=== PATIENT | female | born 1970 | race Asian ===

== ENCOUNTER 2016-09-15 16:56 | Inpatient (IN) | payer BC, OTHER ==
[2016-09-15] VITALS (7 sets, daily range): BP systolic 97–116; BP diastolic 58–70
[2016-09-15] MEDS ORDERED: IV NORMAL SALINE 1000ML BAG 1,000 ML IV ONE (17:45)
[2016-09-15 17:49] LABS: BILIRUBIN,URINE NEGATIVE (NEG); GLUCOSE,URINE NEGATIVE (NEG); NITRITE,URINE NEGATIVE (NEG); PH,URINE 5.5; PROTEIN,URINE NEGATIVE (NEG-TRACE); UROBILINOGEN,URINE 0.2 mg/dL (0.2 mg/dL)
[2016-09-15 17:51] LABS: NEG OBC UR NEG; POS OBC UR POS
[2016-09-15 17:56] LABS: BACTERIA,URINE 0 /HPF (0-FEW); RBC,URINE 0 /HPF (0-2); SQUAMOUS EPITHELIAL CELL,UR MOD /LPF; WBC,URINE 0 /HPF (0-4)
[2016-09-15 18:00] LABS: BASO # 0.1 x10^3/uL (0.0-0.2); BASO % 1 % (0-3); EOS % 4 % (0-3); LYMPH # 2.2 x10^3/uL (1.0-4.8); LYMPH % 29 % (24-48); MEAN CORPUSCULAR HEMOGLOBIN 19 pg (25-35); MEAN CORPUSCULAR HGB CONC 30 g/dL (31-37); MEAN CORPUSCULAR VOLUME 63 fL (79-100); MONO % 6 % (0-9); NEUT % 60 % (31-73); PLATELET COUNT 177 x10^3/uL (140-400); RED BLOOD COUNT 3.04 x10^6/uL (3.50-5.40); RED CELL DISTRIBUTION WIDTH 17.9 % (11.5-14.5); WHITE BLOOD COUNT 7.5 x10^3/uL (4.0-11.0)
[2016-09-15 18:01] LABS: HEMATOCRIT 19.2 % (36.0-47.0); HEMOGLOBIN 5.7 g/dL (12.0-15.5)
[2016-09-15 18:10] LABS: CALCIUM 8.6 mg/dL (8.5-10.1); CREATININE 0.6 mg/dL (0.6-1.0); GFR 108.6; POTASSIUM 3.3 mmol/L (3.5-5.1)
[2016-09-15 18:32] LABS: ANISOCYTOSIS SLIGHT; HYPOCHROMIA MOD; PLT ESTIMATE ADEQUATE (ADEQUATE); POLYCHROMASIA SLIGHT
[2016-09-15 18:33] LABS: MICROCYTOSIS MARKED
--- NOTE | 2016-09-15 18:38 | ED.ADGEN ---
Past Medical History Past Medical History: Asthma, Diabetes-Type II Past Surgical History: No Surgical History Additional Past Surgical Histo: d&c Alcohol Use: None Drug Use: None Adult General Chief Complaint Chief Complaint: VAGINAL PROBLEM HPI HPI Patient is a 46 year old woman, with a history of type 2 diabetes mellitus, asthma, who presents to the emergency department with a complaint of vaginal bleeding for 9 days. Patient states she is experiencing mild abdominal cramping , and vaginal bleeding that has been heavy and persistent for 9 days, states she is using an average of 7 pads that she is soaking through daily. States that the bleeding was especially heavy earlier this afternoon, prompting her to come to the emergency department for evaluation. Patient is primarily Kristy speaking, translation is assisted with family at bedside. Patient does not currently her primary care provider, and has not been using any medications for the past year and a half or so. She denies any chest pain or shortness of breath , any lightheadedness or dizziness, any nausea or vomiting, any weakness, numbness or tingling, any injuries. Denies any possibility of or STI exposures. Patient states she is not having any bleeding at this time. States that a similar episode occurred about 2 years ago, at that time she was evaluated at , received medication for the vaginal bleeding, did not require blood transfusion. No urinary complaints. No back pain or flank pain. Review of Systems Review of Systems Constitutional: Denies fever or chills. [] Eyes: Denies change in visual acuity. [] HENT: Denies nasal congestion or sore throat. [] Respiratory: Denies cough or shortness of breath. [] Cardiovascular: Denies chest pain or edema. [] GI: Abdominal cramping, vaginal bleeding, no nausea, vomiting, bloody stools or diarrhea. : Denies dysuria. [] Musculoskeletal: Denies back pain or joint pain. [] Integument: Denies rash. [] Neurologic: Denies headache, focal weakness or sensory changes. [] Endocrine: Denies polyuria or polydipsia. [] Lymphatic: Denies swollen glands. [] Psychiatric: Denies depression or anxiety. [] Current Medications Current Medications Current Medications Medications (Trade) Dose Ordered Sig/Jose Start Time Stop Time Status Last Admin Dose Admin Fentanyl Citrate (Fentanyl 2ml Vial) 25 mcg PRN Q15MIN PRN 09/15/16 19:30 09/16/16 19:29 Sodium Chloride 1,000 ml @ 1,000 mls/hr 1X ONCE 09/15/16 17:45 09/15/16 18:44 DC 09/15/16 18:20 1,000 MLS/HR Allergies Allergies Allergies Coded Allergies Type Severity Reaction Last Updated Verified No Known Drug Allergies 05/26/15 No Physical Exam Physical Exam Constitutional: Well developed, well nourished, no acute distress, pale in appearance. [] HENT: Normocephalic, atraumatic, bilateral external ears normal, oropharynx moist, no oral exudates, nose normal. [] Eyes: PERRLA, EOMI, conjunctiva pale, no discharge. [] Neck: Normal range of motion, no tenderness, supple, no stridor. [] Cardiovascular:Heart rate regular rhythm, no murmur, S1, S2, no rubs or gallops. [] Lungs & Thorax: Bilateral breath sounds clear to auscultation, no wheezing, rhonchi, rales. No chest or crepitus or tenderness. [] Abdomen: Bowel sounds normal, soft, mild tenderness to palpation in the suprapubic region, no masses, no pulsatile masses. [] Skin: Warm, dry, no erythema, no rash. [] Back: No tenderness, no CVA tenderness. [] Extremities: No tenderness, no cyanosis, no clubbing, ROM intact, no edema. [] Neurologic: Alert and oriented X 3, normal motor function, normal sensory function, no focal deficits noted. [] Psychologic: Affect normal, judgement normal, mood normal. [] Pelvic examination: External examination is unremarkable, straight catheter urine obtained without issue, urine was clear. External os open, fingertip internal os was open fingertip as well, nontender cervix and uterus, no adnexal masses or tenderness identified. Patient with a small amount of dark red blood on glove, speculum examination performed without issue, normal-appearing cervix , with a small amount of dark red blood in full, no active bleeding or oozing. No bright red blood, no lesions or other maladies identified. Specimens taken without issue. Current Patient Data Vital Signs Vital Signs Date Time Temp Pulse Resp B/P (MAP) Pulse Ox O2 Delivery O2 Flow Rate FiO2 09/15/16 19:20 98.5 75 21 116/59 98.5 09/15/16 18:04 100 Room Air Lab Values Laboratory Tests Test 09/15/16 17:05 09/15/16 17:40 White Blood Count 7.5 x10^3/uL (4.0-11.0) Red Blood Count 3.04 x10^6/uL (3.50-5.40) L Hemoglobin 5.7 g/dL (12.0-15.5) *L Hematocrit 19.2 % (36.0-47.0) *L Mean Corpuscular Volume 63 fL (79-100) L Mean Corpuscular Hemoglobin 19 pg (25-35) L Mean Corpuscular Hemoglobin Concent 30 g/dL (31-37) L Red Cell Distribution Width 17.9 % (11.5-14.5) H Platelet Count 177 x10^3/uL (140-400) Neutrophils (%) (Auto) 60 % (31-73) Lymphocytes (%) (Auto) 29 % (24-48) Monocytes (%) (Auto) 6 % (0-9) Eosinophils (%) (Auto) 4 % (0-3) H Basophils (%) (Auto) 1 % (0-3) Neutrophils # (Auto) 4.5 x10^3uL (1.8-7.7) Lymphocytes # (Auto) 2.2 x10^3/uL (1.0-4.8) Monocytes # (Auto) 0.4 x10^3/uL (0.0-1.1) Eosinophils # (Auto) 0.3 x10^3/uL (0.0-0.7) Basophils # (Auto) 0.1 x10^3/uL (0.0-0.2) Platelet Estimate Adequate (ADEQUATE) Polychromasia Slight Hypochromasia Mod Anisocytosis Slight Microcytosis Marked Prothrombin Time 13.4 SEC (11.7-14.0) Prothrombin Time INR 1.1 (0.8-1.1) PTT 30 SEC (24-38) Sodium Level 138 mmol/L (136-145) Potassium Level 3.3 mmol/L (3.5-5.1) L Chloride Level 103 mmol/L (98-107) Carbon Dioxide Level 27 mmol/L (21-32) Anion Gap 8 (6-14) Blood Urea Nitrogen 7 mg/dL (7-20) Creatinine 0.6 mg/dL (0.6-1.0) Estimated GFR (Cockcroft-Gault) 108.6 Glucose Level 132 mg/dL (70-99) H Calcium Level 8.6 mg/dL (8.5-10.1) Troponin I Quantitative < 0.017 ng/mL (0.000-0.055) Thyroid Stimulating Hormone (TSH) 2.839 uIU/mL (0.358-3.74) Urine Collection Type U cath Urine Color Straw Urine Clarity Clear Urine pH 5.5 Urine Specific [place] <=1.005 Urine Protein Negative mg/dL (NEG-TRACE) Urine Glucose (UA) Negative mg/dL (NEG) Urine Ketones (Stick) Negative mg/dL (NEG) Urine Blood Negative (NEG) Urine Nitrite Negative (NEG) Urine Bilirubin Negative (NEG) Urine Urobilinogen Dipstick 0.2 mg/dL (0.2 mg/dL) Urine Leukocyte Esterase Negative (NEG) Urine RBC 0 /HPF (0-2) Urine WBC 0 /HPF (0-4) Urine Squamous Epithelial Cells Mod /LPF Urine Transitional Epithelial Cells Occ /LPF Urine Bacteria 0 /HPF (0-FEW) Urine Test Negative (NEG) Laboratory Tests 09/15/16 17:05 Laboratory Tests 09/15/16 17:05 Microbiology 09/15/16 Wet Prep - Final, Complete EKG EKG EC: Sinus rhythm, heart rate 73 beats minute, left axis deviation, QTC of 464, [place] 154, QR is a 78, no ST elevations or depressions, no evidence of acute ST abnormalities. As interpreted by me. Radiology/Procedures Radiology/Procedures [][facility] [address] [place] [address] IMAGING REPORT Signed PATIENT: CADY RODRÍGUEZ ACCOUNT: [id number] : 1970 LOCATION: ER AGE: 46 SEX: F EXAM STATUS: REG ER ORD. PHYSICIAN: TOMAS ZEPEDA DO REASON: vaginal bleeding/abd pain PROCEDURE: PELVIS COMPLETE PROCEDURE Transabdominal and transvaginal sonography of the pelvis HISTORY Heavy vaginal bleeding. Patient has been on menstrual period for 9 days. Abdominal pain. FINDINGS Transabdominal sonography: The uterus is anteverted in position. The longitudinal and AP and transverse dimensions of the uterus are 9.9 centimeters and 3.8 centimeters and 6.5 centimeters respectively. The endometrial canal measures 6.5 millimeters in thickness but is poorly visualized. Therefore, transvaginal sonography will be performed. No uterine mass or fibroid is seen. No free fluid is seen within the cul-de-sac. Neither ovary is visualized by transabdominal exam. No adnexal masses are seen. Transvaginal sonography: A nabothian cyst is seen. The endometrial canal measures 6 millimeters in thickness which is normal. No uterine mass or fibroid is seen. The left ovary measures 1.7 centimeters and 1.8 centimeters and 3.6 centimeters in size. The left ovary contains a 16 millimeter follicular cyst. Additional smaller follicular cysts are seen. Color Doppler flow is seen within the left ovary. The right ovary measures 1.3 centimeters and 2.0 centimeters and 1.3 centimeters in size and is normal. Color Doppler flow is seen within the right ovary. No adnexal mass is seen. IMPRESSION Follicular cyst. Unremarkable study. Electronically signed by: Radha Tapia MD (September 15, 2016 19:33:21) DICTATED and SIGNED BY: RADHA TAPIA MD DATE: 09/15/161932 CC: TOMAS ZEPEDA DO; UNKNOWN PCP NAME ~ Course & Med Decision Making Course & Med Decision Making Pertinent Labs and Imaging studies reviewed. (See chart for details) Patient with complaint of bleeding 9 days, hemoglobin resulted at 5.7, patient denies any history of anemia. Consent for transfusion obtained, written consent on chart. Patient typed and crossed for 3 units of packed red cells. As stated, patient is expressing no vaginal bleeding currently, ultrasound reveals essentially normal examination aside from the a follicular cyst, symptoms are consistent with dysfunctional uterine bleeding. Findings as above discussed with Dr. Gaffney of [facility], patient accepted to his service as a full admission to the [facility] floor, TSH and prolactin level added to laboratory studies, patient to receive repeat hemoglobin and basic chemistry in the morning. Patient remained stable on the monitor, heart rate in the 70s to 80s, blood pressure and 1 teens over 70s, resting comfortably awaiting transfer to the floor. Bridge orders entered per discussion. Dragon Disclaimer Dragon Disclaimer This electronic medical record was generated, in whole or in part, using a voice recognition dictation system. Departure Impression: Primary Impression: Vaginal bleeding Additional Impression: Anemia Disposition: 09 ADMITTED INPATIENT Admitting Physician: Other Condition: IMPROVED Problem Qualifiers TOMAS ZEPEDA DO September 15, 2016 18:38
[2016-09-15 19:23] LABS: INR 1.1 (0.8-1.1); PROTHROMBIN TIME PATIENT 13.4 SEC (11.7-14.0)
[2016-09-15] MEDS ORDERED: fentaNYL PF VIAL 100 MCG/2 ML VIAL IV PRN ×2 (19:30→20:45)
--- NOTE | 2016-09-15 19:35 | RAD ---
PROCEDURE Transabdominal and transvaginal sonography of the pelvis HISTORY Heavy vaginal bleeding. Patient has been on menstrual period for 9 days. Abdominal pain. FINDINGS Transabdominal sonography: The uterus is anteverted in position. The longitudinal and AP and transverse dimensions of the uterus are 9.9 centimeters and 3.8 centimeters and 6.5 centimeters respectively. The endometrial canal measures 6.5 millimeters in thickness but is poorly visualized. Therefore, transvaginal sonography will be performed. No uterine mass or fibroid is seen. No free fluid is seen within the cul-de-sac. Neither ovary is visualized by transabdominal exam. No adnexal masses are seen. Transvaginal sonography: A nabothian cyst is seen. The endometrial canal measures 6 millimeters in thickness which is normal. No uterine mass or fibroid is seen. The left ovary measures 1.7 centimeters and 1.8 centimeters and 3.6 centimeters in size. The left ovary contains a 16 millimeter follicular cyst. Additional smaller follicular cysts are seen. Color Doppler flow is seen within the left ovary. The right ovary measures 1.3 centimeters and 2.0 centimeters and 1.3 centimeters in size and is normal. Color Doppler flow is seen within the right ovary. No adnexal mass is seen. IMPRESSION Follicular cyst. Unremarkable study. Electronically signed by: Dariel Tapia MD (September 15, 2016 19:33:21)
[2016-09-15] MEDS ORDERED: ONDANSETRON PF 4 MG/2 ML VIAL. IV PRN (20:45)
[2016-09-15] MEDS ORDERED: ACETAMINOPHEN 325 MG TABLET. PO PRN (20:45)
[2016-09-15] MEDS ORDERED: DEXTROSE 50% 25 GM / 50ML DISP.SYRIN. IV PRN (20:45)
[2016-09-15] MEDS ORDERED: ZOLPIDEM 5 MG TABLET. PO PRN (22:30)
[2016-09-15] MEDS ORDERED: oxyCODONE/APAP 5/325 1 TAB TABLET PO PRN (22:30)
[2016-09-15] MEDS ORDERED: diphenhydrAMINE HCL 25 MG CAPSULE PO PRN (22:30)
[2016-09-15] MEDS ORDERED: IBUPROFEN 800 MG TABLET. PO PRN (22:45)
[2016-09-16] VITALS (8 sets, daily range): BP systolic 98–114; BP diastolic 62–69
[2016-09-16 04:02] LABS: BASO # 0.1 x10^3/uL (0.0-0.2); BASO % 1 % (0-3); EOS % 5 % (0-3); HEMATOCRIT 28.2 % (36.0-47.0); LYMPH # 2.4 x10^3/uL (1.0-4.8); LYMPH % 37 % (24-48); MEAN CORPUSCULAR HEMOGLOBIN 23 pg (25-35); MEAN CORPUSCULAR HGB CONC 32 g/dL (31-37); MEAN CORPUSCULAR VOLUME 72 fL (79-100); MONO % 8 % (0-9); NEUT % 49 % (31-73); PLATELET COUNT 158 x10^3/uL (140-400); RED BLOOD COUNT 3.91 x10^6/uL (3.50-5.40); RED CELL DISTRIBUTION WIDTH 24.5 % (11.5-14.5); WHITE BLOOD COUNT 6.5 x10^3/uL (4.0-11.0)
[2016-09-16 04:19] LABS: CALCIUM 8.2 mg/dL (8.5-10.1); CREATININE 0.5 mg/dL (0.6-1.0); POTASSIUM 3.7 mmol/L (3.5-5.1)
--- NOTE | 2016-09-16 06:09 | EKG ---
[facility] [address] [place] [address] Test Date: 2016-09-15 Test Time: 18:53:24 Pat Name: CADY RODRÍGUEZ Department: Room: [facility] Gender: F Senior Sales Manager: : 1970 Requested By: TOMAS ZEPEDA Order Number: [id number] Reading MD: Bjorn Haas Measurements Intervals [place] Rate: 73 P: 22 CO: 154 QRS: -17 QRSD: 78 T: 11 QT: 418 QTc: 464 Interpretive Statements SR NON-SPECIFIC ST/T CHANGES Electronically Signed On 09-20-2016 14:02:57 CDT by Bjorn Haas
[2016-09-16] MEDS ORDERED: INSULIN ASPART 300 UNITS/3 ML INSULN.PEN SQ SCH (08:00)
--- NOTE | 2016-09-16 13:12 | PDOC4 ---
PROCEDURE Procedure EMB PAP without difficulties MICHAEL MARIA MD September 16, 2016 13:12
--- NOTE | 2016-09-16 13:16 | PDOC3 ---
Discharge Summary Date of Admission: September 15, 2016 Date of Discharge: September 17, 2016 Follow-Up: Other (week) Admitting Diagnosis comment: AUB Anemia FINAL DIAGNOSIS Problems Medical Problems: (1) Anemia Status: Acute (2) Vaginal bleeding Status: Acute Brief Hospital Course Ms. De Jesus is a 46 old female who presented with AUB and anemia CONDITION AT DISCHARGE: Stable Discharge Medications Current Medications Sodium Chloride 1,000 ml @ 1,000 mls/hr 1X ONCE IV Last administered on 18:20; Start 09/15/16 at 17:45; Stop 09/15/16 at 18:44; Status DC Fentanyl Citrate (Fentanyl 2ml Vial) 25 mcg PRN Q15MIN PRN IV PAIN GREATER THAN 3/10; Start 09/15/16 at 19:30; Stop 09/16/16 at 19:29 Ondansetron HCl (Zofran) 4 mg PRN Q8HRS PRN IV NAUSEA/VOMITING; Start 09/15/16 at 20:45; Stop 09/16/16 at 20:44 Fentanyl Citrate (Fentanyl 2ml Vial) 50 mcg PRN Q2HR PRN IV PAIN; Start at 20:45; Stop 09/16/16 at 20:44 Acetaminophen (Tylenol) 650 mg PRN Q4HRS PRN PO FEVER; Start 09/15/16 at 20:45 ; Stop 09/16/16 at 20:44 Insulin Aspart (NovoLOG) 0-5 UNITS TIDWMEALS SQ Last administered on 09/16/16t 12:07; Start 09/16/16 at 08:00 Dextrose (Dextrose 50%-Water Syringe) 12.5 gm PRN Q15MIN PRN IV SEE COMMENTS; Start 09/15/16 at 20:45 Oxycodone/ Acetaminophen (Percocet 5/325) 1 tab PRN Q4HRS PRN PO PAIN; Start at 22:30 Zolpidem Tartrate (Ambien) 5 mg PRN QHS PRN PO INSOMNIA; Start 09/15/16 at 22: 30 Diphenhydramine HCl (Benadryl) 50 mg PRN Q6HRS PRN PO ITCHING; Start 09/15/16 at 22:30 Ibuprofen (Motrin) 800 mg PRN Q6HRS PRN PO INFLAMMATION; Start 09/15/16 at 22: 45 Vital Signs Vital Signs Date Time Temp Pulse Resp B/P (MAP) Pulse Ox O2 Delivery O2 Flow Rate FiO2 09/16/16 11:09 98.1 90 18 103/65 (78) 98.1 09/15/16 23:00 100 Room Air Labs Laboratory Tests Test 09/15/16 17:05 09/15/16 17:40 09/16/16 03:50 09/16/16 11:59 White Blood Count 7.5 x10^3/uL (4.0-11.0) 6.5 x10^3/uL (4.0-11.0) Red Blood Count 3.04 x10^6/uL (3.50-5.40) 3.91 x10^6/uL (3.50-5.40) Hemoglobin 5.7 g/dL (12.0-15.5) 9.0 g/dL (12.0-15.5) Hematocrit 19.2 % (36.0-47.0) 28.2 % (36.0-47.0) Mean Corpuscular Volume 63 fL (79-100) 72 fL (79-100) Mean Corpuscular Hemoglobin 19 pg (25-35) 23 pg (25-35) Mean Corpuscular Hemoglobin Concent 30 g/dL (31-37) 32 g/dL (31-37) Red Cell Distribution Width 17.9 % (11.5-14.5) 24.5 % (11.5-14.5) Platelet Count 177 x10^3/uL (140-400) 158 x10^3/uL (140-400) Neutrophils (%) (Auto) 60 % (31-73) 49 % (31-73) Lymphocytes (%) (Auto) 29 % (24-48) 37 % (24-48) Monocytes (%) (Auto) 6 % (0-9) 8 % (0-9) Eosinophils (%) (Auto) 4 % (0-3) 5 % (0-3) Basophils (%) (Auto) 1 % (0-3) 1 % (0-3) Neutrophils # (Auto) 4.5 x10^3uL (1.8-7.7) 3.2 x10^3uL (1.8-7.7) Lymphocytes # (Auto) 2.2 x10^3/uL (1.0-4.8) 2.4 x10^3/uL (1.0-4.8) Monocytes # (Auto) 0.4 x10^3/uL (0.0-1.1) 0.5 x10^3/uL (0.0-1.1) Eosinophils # (Auto) 0.3 x10^3/uL (0.0-0.7) 0.3 x10^3/uL (0.0-0.7) Basophils # (Auto) 0.1 x10^3/uL (0.0-0.2) 0.1 x10^3/uL (0.0-0.2) Platelet Estimate Adequate (ADEQUATE) Polychromasia Slight Hypochromasia Mod Anisocytosis Slight Microcytosis Marked Prothrombin Time 13.4 SEC (11.7-14.0) Prothromb Time International Ratio 1.1 (0.8-1.1) Activated Partial Thromboplast Time 30 SEC (24-38) Sodium Level 138 mmol/L (136-145) 140 mmol/L (136-145) Potassium Level 3.3 mmol/L (3.5-5.1) 3.7 mmol/L (3.5-5.1) Chloride Level 103 mmol/L (98-107) 107 mmol/L (98-107) Carbon Dioxide Level 27 mmol/L (21-32) 24 mmol/L (21-32) Anion Gap 8 (6-14) 9 (6-14) Blood Urea Nitrogen 7 mg/dL (7-20) 8 mg/dL (7-20) Creatinine 0.6 mg/dL (0.6-1.0) 0.5 mg/dL (0.6-1.0) Estimated GFR (Cockcroft-Gault) 108.6 134.0 Glucose Level 132 mg/dL (70-99) 124 mg/dL (70-99) Calcium Level 8.6 mg/dL (8.5-10.1) 8.2 mg/dL (8.5-10.1) Troponin I Quantitative < 0.017 ng/mL (0.000-0.055) Thyroid Stimulating Hormone (TSH) 2.839 uIU/mL (0.358-3.74) Urine Collection Type U cath Urine Color Straw Urine Clarity Clear Urine pH 5.5 Urine Specific [place] <=1.005 Urine Protein Negative mg/dL (NEG-TRACE) Urine Glucose (UA) Negative mg/dL (NEG) Urine Ketones (Stick) Negative mg/dL (NEG) Urine Blood Negative (NEG) Urine Nitrite Negative (NEG) Urine Bilirubin Negative (NEG) Urine Urobilinogen Dipstick 0.2 mg/dL (0.2 mg/dL) Urine Leukocyte Esterase Negative (NEG) Urine RBC 0 /HPF (0-2) Urine WBC 0 /HPF (0-4) Urine Squamous Epithelial Cells Mod /LPF Urine Transitional Epithelial Cells Occ /LPF Urine Bacteria 0 /HPF (0-FEW) Urine Test Negative (NEG) Glucose (Fingerstick) 89 mg/dL (70-99) Laboratory Tests Test 09/15/16 17:05 09/15/16 17:40 09/16/16 03:50 09/16/16 11:59 White Blood Count 7.5 x10^3/uL (4.0-11.0) 6.5 x10^3/uL (4.0-11.0) Red Blood Count 3.04 x10^6/uL (3.50-5.40) 3.91 x10^6/uL (3.50-5.40) Hemoglobin 5.7 g/dL (12.0-15.5) 9.0 g/dL (12.0-15.5) Hematocrit 19.2 % (36.0-47.0) 28.2 % (36.0-47.0) Mean Corpuscular Volume 63 fL (79-100) 72 fL (79-100) Mean Corpuscular Hemoglobin 19 pg (25-35) 23 pg (25-35) Mean Corpuscular Hemoglobin Concent 30 g/dL (31-37) 32 g/dL (31-37) Red Cell Distribution Width 17.9 % (11.5-14.5) 24.5 % (11.5-14.5) Platelet Count 177 x10^3/uL (140-400) 158 x10^3/uL (140-400) Neutrophils (%) (Auto) 60 % (31-73) 49 % (31-73) Lymphocytes (%) (Auto) 29 % (24-48) 37 % (24-48) Monocytes (%) (Auto) 6 % (0-9) 8 % (0-9) Eosinophils (%) (Auto) 4 % (0-3) 5 % (0-3) Basophils (%) (Auto) 1 % (0-3) 1 % (0-3) Neutrophils # (Auto) 4.5 x10^3uL (1.8-7.7) 3.2 x10^3uL (1.8-7.7) Lymphocytes # (Auto) 2.2 x10^3/uL (1.0-4.8) 2.4 x10^3/uL (1.0-4.8) Monocytes # (Auto) 0.4 x10^3/uL (0.0-1.1) 0.5 x10^3/uL (0.0-1.1) Eosinophils # (Auto) 0.3 x10^3/uL (0.0-0.7) 0.3 x10^3/uL (0.0-0.7) Basophils # (Auto) 0.1 x10^3/uL (0.0-0.2) 0.1 x10^3/uL (0.0-0.2) Platelet Estimate Adequate (ADEQUATE) Polychromasia Slight Hypochromasia Mod Anisocytosis Slight Microcytosis Marked Prothrombin Time 13.4 SEC (11.7-14.0) Prothromb Time International Ratio 1.1 (0.8-1.1) Activated Partial Thromboplast Time 30 SEC (24-38) Sodium Level 138 mmol/L (136-145) 140 mmol/L (136-145) Potassium Level 3.3 mmol/L (3.5-5.1) 3.7 mmol/L (3.5-5.1) Chloride Level 103 mmol/L (98-107) 107 mmol/L (98-107) Carbon Dioxide Level 27 mmol/L (21-32) 24 mmol/L (21-32) Anion Gap 8 (6-14) 9 (6-14) Blood Urea Nitrogen 7 mg/dL (7-20) 8 mg/dL (7-20) Creatinine 0.6 mg/dL (0.6-1.0) 0.5 mg/dL (0.6-1.0) Estimated GFR (Cockcroft-Gault) 108.6 134.0 Glucose Level 132 mg/dL (70-99) 124 mg/dL (70-99) Calcium Level 8.6 mg/dL (8.5-10.1) 8.2 mg/dL (8.5-10.1) Troponin I Quantitative < 0.017 ng/mL (0.000-0.055) Thyroid Stimulating Hormone (TSH) 2.839 uIU/mL (0.358-3.74) Urine Collection Type U cath Urine Color Straw Urine Clarity Clear Urine pH 5.5 Urine Specific [place] <=1.005 Urine Protein Negative mg/dL (NEG-TRACE) Urine Glucose (UA) Negative mg/dL (NEG) Urine Ketones (Stick) Negative mg/dL (NEG) Urine Blood Negative (NEG) Urine Nitrite Negative (NEG) Urine Bilirubin Negative (NEG) Urine Urobilinogen Dipstick 0.2 mg/dL (0.2 mg/dL) Urine Leukocyte Esterase Negative (NEG) Urine RBC 0 /HPF (0-2) Urine WBC 0 /HPF (0-4) Urine Squamous Epithelial Cells Mod /LPF Urine Transitional Epithelial Cells Occ /LPF Urine Bacteria 0 /HPF (0-FEW) Urine Test Negative (NEG) Glucose (Fingerstick) 89 mg/dL (70-99) Allergies Allergies Coded Allergies Type Severity Reaction Last Updated Verified No Known Drug Allergies 05/26/15 No Disposition/Orders: D/C to Home Patient Instructions FU at 2PM 24 august MICHAEL MARIA MD September 16, 2016 13:16
[2016-09-16] MEDS ORDERED: FERR-26 PO (13:20)
[2016-09-16] MEDS ORDERED: MEDR10TA PO (13:20)
--- NOTE | 2016-09-16 18:43 | HP ---
ADMIT DATE: 09/15/2016 CHIEF COMPLAINT: Vaginal bleeding. HISTORY OF PRESENT ILLNESS: This is a 46-year-old 4, para 4 female with a history of abnormal uterine bleeding. Previously, she was seen at ____ with similar episode approximately 2 years ago, presented to the ER with hemoglobin of 5.7 and symptomatic. The ER doctor reported to me of her abnormal uterine bleeding, which has slowed down. She was finally typed and crossed and given her 3 units of blood. I agreed and he admitted her. Her physical exam is on the chart along with history. PHYSICAL EXAMINATION: GENITOURINARY: On my physical examination in the procedure room, her uterus was approximately 9 cm. There is no dominant masses, no adnexal masses. Labia, [place] glands, [place] glands, and urethra all appeared normal. Her cervical os is open. There is minimal blood in the vaginal vault. An EMB was performed along with the Pap smear. The patient tolerated the procedure well. The patient and were informed of probabilities and possibilities of her condition and the need for the EMB and Pap and they agree. After ruling out any sort of malignancy, definitive measures would either be a hysterectomy or less invasive of endometrial ablation. IMPRESSION: Abnormal uterine bleeding with severe anemia, will improve with blood transfusion. PLAN: As above. MICHAEL MARIA MD DR: ENDER/jordyn JOB#: [id number] / [id number]
--- NOTE | 2016-09-20 15:24 | PATHOLOGY ---
PATHOLOGY REPORT * * * * * * * * FINAL DIAGNOSIS: Endometrial biopsy: - Slightly disordered proliferative endometrium showing focal glandular/stromal breakdown. COMMENT: There is no evidence of hyperplasia or malignancy. (DAMONM:; d/t: 09/20/16) REPORT ELECTRONICALLY SIGNED BY: Shawn Ordonez M.D. DATE/TIME: 09/20/2016 15:23 * * * * * * * * GROSS PATHOLOGY: Received in formalin labeled "Pilar Rodríguez endometrial," are several segments of red-santa membranous tissue admixed with mucoid material measuring 2.8 x 1.5 x 0.3 cm in aggregate dimensions. The specimen is submitted entirely in cassette A1. (KAH; 09/17/2016) INITIAL CPT CODE(S): A; 96624 Professional services performed by [facility] [place] [address] Technical services performed by [facility] at [address] [place] [address], [facility] [address], [place] [address]. SPECIMEN(S) RECEIVED: A.Endometrial biopsy CLINICAL HISTORY: Anemia, PATIENT: PILAR RODRÍGUEZ /AGE: 10 1970 (Age: 46) PATIENT #: [id number] ALT CASE #: SPECIMEN COLLECTION DATE: 09/16/2016 SPECIMEN RECEIVED DATE: 09/16/2016 [facility] - [address] [place] [address] - PHONE: [phone] * * * END OF REPORT * * *
[2016-10-12] MEDS ORDERED: ACET325T9 PO (11:23)
== END 2016-09-16 16:49 | disposition home or self-care (01) | DRG 745 ==
LOC: ER 16:56 → 3 NORTH 19:50
PROVIDERS: ADMIT Specialist; ATTEND Specialist
PROC: 0UDB7ZX Extraction of Endometrium, Via Natural or Artificial Opening, Diagnostic (ICD-10-PCS; principal; 2016-09-16)
PROC: 30233N1 Transfusion of Nonautologous Red Blood Cells into Peripheral Vein, Percutaneous Approach (ICD-10-PCS; 2016-09-16)
DX: N93.9 Abnormal uterine and vaginal bleeding, unspecified (principal); D64.9 Anemia, unspecified; E11.9 Type 2 diabetes mellitus without complications; J45.909 Unspecified asthma, uncomplicated; Z90.710 Acquired absence of both cervix and uterus
CPT/HCPCS: 36415; 76856; 80048; 81001; 81025; 82962; 84146; 84443; 84484; 85007; 85027; 85610; 85730; 86850; 86900; 86901; 86920; 87491; 87591; 88175; 88305; 93005; 96360; J1815; J7030; P9016; Q0111; 99285-25

== ENCOUNTER 2016-10-08 15:54 | Emergency (ER) | payer BC ==
[~2016-10-08] VITALS: Ht 154.9 cm; Wt 70.3 kg
[~2016-10-08 15:54] MED LIST: FERR-26 PO; MEDR10TA PO
[2016-10-08 16:36] LABS: BASO # 0.1 x10^3/uL (0.0-0.2); BASO % 1 % (0-3); EOS % 2 % (0-3); HEMOGLOBIN 9.9 g/dL (12.0-15.5); LYMPH # 1.7 x10^3/uL (1.0-4.8); LYMPH % 20 % (24-48); MEAN CORPUSCULAR HEMOGLOBIN 24 pg (25-35); MEAN CORPUSCULAR HGB CONC 33 g/dL (31-37); MEAN CORPUSCULAR VOLUME 74 fL (79-100); MONO % 5 % (0-9); NEUT % 73 % (31-73); PLATELET COUNT 190 x10^3/uL (140-400); RED BLOOD COUNT 4.05 x10^6/uL (3.50-5.40); RED CELL DISTRIBUTION WIDTH 29.3 % (11.5-14.5); WHITE BLOOD COUNT 8.4 x10^3/uL (4.0-11.0)
[2016-10-08] MEDS ORDERED: KETOROLAC TROMETHAMINE 30 MG/ML INJ. IV ONE (16:45)
[2016-10-08 17:04] LABS: CALCIUM 8.5 mg/dL (8.5-10.1); CREATININE 0.7 mg/dL (0.6-1.0); GFR 90.9; POTASSIUM 3.4 mmol/L (3.5-5.1)
--- NOTE | 2016-10-08 17:25 | PHYS DOC ---
Past Medical History Past Medical History: Asthma, Diabetes-Type II Past Surgical History: No Surgical History Additional Past Surgical Histo: d&c Alcohol Use: None Drug Use: None Adult General Chief Complaint Chief Complaint: ABDOMINAL PAIN HPI HPI Patient is a 46 year old female who presents with vaginal bleeding and lower abdominal cramping for the past 3 days. State she is going to have a hysterectomy for this. She is concerned because she has prior admit requiring blood transfusion. Used 5 pads today. She denies f/c, n/v, lightheadedness, fatigue, dysuria. Review of Systems Review of Systems Constitutional: Denies fever or chills [] Eyes: Denies change in visual acuity, redness, or eye pain [] HENT: Denies nasal congestion or sore throat [] Respiratory: Denies cough or shortness of breath [] Cardiovascular: No additional information not addressed in HPI [] GI: Denies nausea, vomiting, bloody stools or diarrhea [] : Denies dysuria or hematuria [] Musculoskeletal: Denies back pain or joint pain [] Integument: Denies rash or skin lesions [] Neurologic: Denies headache, focal weakness or sensory changes [] Endocrine: Denies polyuria or polydipsia [] Current Medications Current Medications Current Medications Medications (Trade) Dose Ordered Sig/Jose Start Time Stop Time Status Last Admin Dose Admin Ketorolac Tromethamine (Toradol) 10 mg 1X ONCE 10/08/16 16:45 10/08/16 16:46 DC 10/08/16 17:05 10 MG Allergies Allergies Allergies Coded Allergies Type Severity Reaction Last Updated Verified No Known Drug Allergies 05/26/15 No Physical Exam Physical Exam Constitutional: Well developed, well nourished, no acute distress, non-toxic appearance. [] HENT: Normocephalic, atraumatic, bilateral external ears normal, oropharynx moist, nose normal. [] Eyes: PERRLA, EOMI. [] Neck: Normal range of motion, supple. [] Cardiovascular:Heart rate regular rhythm [] Lungs & Thorax: Bilateral breath sounds clear to auscultation [] Abdomen: Bowel sounds normal, soft, no tenderness. [] Skin: Warm, dry, no erythema, no rash. [] Back: Normal ROM. [] Extremities: No tenderness, ROM intact, no edema. [] Neurologic: Alert and oriented X 3, normal motor function, normal sensory function, no focal deficits noted. [] Psychologic: Affect normal, judgement normal, mood normal. [] Current Patient Data Vital Signs Vital Signs Date Time Temp Pulse Resp B/P (MAP) Pulse Ox O2 Delivery O2 Flow Rate FiO2 10/08/16 17:37 66 18 107/64 (78) 100 Room Air 10/08/16 16:00 98.4 98.4 Lab Values Laboratory Tests Test 10/08/16 16:28 White Blood Count 8.4 x10^3/uL (4.0-11.0) Red Blood Count 4.05 x10^6/uL (3.50-5.40) Hemoglobin 9.9 g/dL (12.0-15.5) L Hematocrit 30.0 % (36.0-47.0) L Mean Corpuscular Volume 74 fL (79-100) L Mean Corpuscular Hemoglobin 24 pg (25-35) L Mean Corpuscular Hemoglobin Concent 33 g/dL (31-37) Red Cell Distribution Width 29.3 % (11.5-14.5) H Platelet Count 190 x10^3/uL (140-400) Neutrophils (%) (Auto) 73 % (31-73) Lymphocytes (%) (Auto) 20 % (24-48) L Monocytes (%) (Auto) 5 % (0-9) Eosinophils (%) (Auto) 2 % (0-3) Basophils (%) (Auto) 1 % (0-3) Neutrophils # (Auto) 6.1 x10^3uL (1.8-7.7) Lymphocytes # (Auto) 1.7 x10^3/uL (1.0-4.8) Monocytes # (Auto) 0.4 x10^3/uL (0.0-1.1) Eosinophils # (Auto) 0.1 x10^3/uL (0.0-0.7) Basophils # (Auto) 0.1 x10^3/uL (0.0-0.2) Platelet Estimate Adequate (ADEQUATE) Hypochromasia Slight Poikilocytosis Slight Anisocytosis Marked Microcytosis Slight Tear Drop Cells Occ Ovalocytes Occ Schistocytes Occ Sodium Level 141 mmol/L (136-145) Potassium Level 3.4 mmol/L (3.5-5.1) L Chloride Level 106 mmol/L (98-107) Carbon Dioxide Level 27 mmol/L (21-32) Anion Gap 8 (6-14) Blood Urea Nitrogen 8 mg/dL (7-20) Creatinine 0.7 mg/dL (0.6-1.0) Estimated GFR (Cockcroft-Gault) 90.9 Glucose Level 160 mg/dL (70-99) H Calcium Level 8.5 mg/dL (8.5-10.1) Laboratory Tests 10/08/16 16:28 Laboratory Tests 10/08/16 16:28 Course & Med Decision Making Course & Med Decision Making Pertinent Labs and Imaging studies reviewed. (See chart for details) Hgb stable from prior. Laboratory evaluation otherwise unremarkable. Encouraged destination imagination coordinator follow up. Return precautions given. She and family understand and agree with plan. Dragon Disclaimer Dragon Disclaimer This electronic medical record was generated, in whole or in part, using a voice recognition dictation system. Departure Departure Impression: Primary Impression: Abnormal uterine bleeding (AUB) Disposition: 01 HOME, SELF-CARE Condition: STABLE Referrals: UNKNOWN PCP NAME (PCP) Patient Instructions: Abnormal Uterine Bleeding Additional Instructions: Take Tylenol or ibuprofen as needed for pain. Follow-up with your oxygen equipment preparer. Return for any concerns. Dionisio SANCHEZ MD Oct 08, 2016 17:25
[2016-10-08 17:37] VITALS: BP 107/64
[2016-10-08 17:37] LABS: ANISOCYTOSIS MARKED; HYPOCHROMIA SLIGHT; MICROCYTOSIS SLIGHT; PLT ESTIMATE ADEQUATE (ADEQUATE); POIKILOCYTOSIS SLIGHT
[2016-10-08 17:43] LABS: OVALOCYTES OCC; SCHISTOCYTES OCC; TEAR DROP CELLS OCC
[2016-10-12] MEDS ORDERED: ACET325T9 PO (11:23)
== END 2016-10-08 17:40 | disposition home or self-care (01) ==
LOC: ER 15:54
DX: N93.8 Other specified abnormal uterine and vaginal bleeding (principal); J45.909 Unspecified asthma, uncomplicated; E11.9 Type 2 diabetes mellitus without complications; Z90.710 Acquired absence of both cervix and uterus
CPT/HCPCS: 36415; 80048; 85007; 85027; 96374; 99284; J1885

== ENCOUNTER 2016-10-13 07:25 | Observation (INO) | payer BC ==
[~2016-10-13] VITALS: Ht 154.9 cm; Wt 68.0 kg
[2016-10-13] VITALS (10 sets, daily range): BP systolic 122–140; BP diastolic 73–88
[~2016-10-13 07:25] MED LIST changes: +ACET325T9 PO; +BUPIVAC MPF-EPI 0.5%-1:200000 30 ML VIAL. ONE; +ESTROGENS, CONJ VAGINAL CREAM 30GM TUBE. ONE; +HYDROmorphone 2 MG/ML VIAL IV PRN; +IV RINGERS,LACTATED 1000ML 1,000 ML IV SCH; +LIDOCAINE 1% 1 ML SYRINGE. ID PRN; +MORPHINE SULFATE 2 MG/ML DISP.SYRIN. IV PRN; +ONDANSETRON PF 4 MG/2 ML VIAL. IV PRN; +PROCHLORPERAZINE 10 MG/2 ML VIAL. IV PRN; +fentaNYL PF VIAL 100 MCG/2 ML VIAL IV PRN; +metroNIDAZOLE 0.75% TOPICAL 1 APP TUBE TP ONE
[2016-10-13] MEDS ORDERED: DEXAMETHASONE SOD PHOS 20 MG/5 ML VIAL. ONE (08:07)
[2016-10-13] MEDS ORDERED: PROPOFOL 20 ML IV ONE (08:07)
[2016-10-13] MEDS ORDERED: LIDOCAINE 2% PF Vial for OR 5 ML VIAL. ONE (08:07)
[2016-10-13] MEDS ORDERED: ONDANSETRON PF 4 MG/2 ML VIAL. ONE (08:07)
[2016-10-13] MEDS ORDERED: MIDAZOLAM HCL/PF 2 MG/2 ML VIAL. ONE ×2 (08:08→09:18)
[2016-10-13] MEDS ORDERED: ROCURONIUM 50 MG/5 ML VIAL. ONE (08:08)
[2016-10-13] MEDS ORDERED: fentaNYL PF VIAL 250 MCG/5 ML VIAL ONE (08:08)
--- NOTE | 2016-10-13 09:06 | RAD ---
AP portable chest radiograph 10/13/2016 Clinical History: Preoperative evaluation prior to hysterectomy. Low-grade fever. Nonproductive cough. An AP portable erect digital radiograph of the chest was obtained. No previous studies are available for comparison. The cardiac and mediastinal silhouettes are within normal limits in size and configuration. No acute pulmonary infiltrate is seen. No pleural effusion or pneumothorax is noted. The osseous structures are grossly intact. Impression: No acute abnormality is seen.
[2016-10-13] MEDS ORDERED: fentaNYL PF VIAL 100 MCG/2 ML VIAL ONE (09:18)
[2016-10-13] MEDS ORDERED: ESMOLOL 100 MG/10 ML VIAL. IV ONE (10:33)
[2016-10-13] MEDS ORDERED: SEVOFLURANE > 120 MINUTES. IH ONE (10:43)
[2016-10-13] MEDS ORDERED: GLYCOPYRROLATE 1 MG/5 ML VIAL. ONE (10:51)
[2016-10-13] MEDS ORDERED: NEOSTIGMINE METHYLSULFATE 5 MG/5 ML SYRINGE. ONE (10:51)
[2016-10-13 10:52] LABS: NEG OBC UR NEG; POS OBC UR POS
--- NOTE | 2016-10-13 11:13 | PDOC ---
BRIEF OPERATIVE NOTE Pre-Op Diagnosis AUB Post-Op Diagnosis Same Procedure Performed [facility] and [facility]SO Surgeon Gulshan Anesthesia Type: General Blood Loss 250cc Specimens Obtained Uterus R ovary and ova duct Complications none MICHAEL MARIA MD Oct 13, 2016 11:13
[2016-10-13] MEDS ORDERED: CALCIUM CARBONATE 500 MG TAB.CHEW PO PRN (11:15)
[2016-10-13] MEDS ORDERED: MAG HYDROX/ALUMINUM HYD/SIMETH 30 ML ORAL.SUSP PO PRN (11:15)
[2016-10-13] MEDS ORDERED: NALOXONE 0.4 MG/ML VIAL. IV PRN (11:15)
[2016-10-13] MEDS ORDERED: 0.9 % SODIUM CHLORIDE 10 ML DISP.SYRIN. IV PRN (11:15)
[2016-10-13] MEDS ORDERED: DEXTROSE 50% 25 GM / 50ML DISP.SYRIN. IV PRN (11:15)
[2016-10-13] MEDS ORDERED: ZOLPIDEM 5 MG TABLET. PO PRN (11:15)
[2016-10-13] MEDS ORDERED: ONDANSETRON PF 4 MG/2 ML VIAL. IV PRN (11:15)
[2016-10-13] MEDS ORDERED: diphenhydrAMINE 50 MG/ML VIAL IV PRN (11:15)
[2016-10-13] MEDS ORDERED: diphenhydrAMINE HCL 25 MG CAPSULE PO PRN (11:15)
[2016-10-13] MEDS ORDERED: SIMETHICONE 80 MG TAB.CHEW PO PRN (11:15)
[2016-10-13] MEDS: fentaNYL PF VIAL 100 MCG/2 ML VIAL IV PRN ×4 (11:19→12:12)
[2016-10-13 11:31] LABS: HEMATOCRIT 26.1 % (36.0-47.0); HEMOGLOBIN 8.7 g/dL (12.0-15.5)
[2016-10-13] MEDS: HYDROmorphone 2 MG/ML VIAL IV PRN ×2 (12:50→15:04)
--- NOTE | 2016-10-13 17:45 | OP ---
DATE OF SURGERY: 10/13/2016 PREOPERATIVE DIAGNOSIS: Abnormal uterine bleeding. POSTOPERATIVE DIAGNOSIS: Abnormal uterine bleeding. PROCEDURE: Total vaginal hysterectomy with right salpingo-oophorectomy. SURGEON: Sohan Gaffney M.D. ZINC FURNACE CHARGER: None. ANESTHESIA: General. ESTIMATED BLOOD LOSS: 250 mL. FLUIDS: Crystalloid. SPECIMENS: Uterus, right ovary and oviducts. COMPLICATIONS: None. CONDITION: Stable. DESCRIPTION OF PROCEDURE: After risks, benefits, indications, alternatives discussed in detail with the patient. The patient brought to the OR theater, placed in a dorsal lithotomy position [facility]. Under adequate general anesthesia, the patient prepped and draped in usual sterile manner. Posterior weighted speculum was placed in the vaginal vault. Cervix was grasped with a single tooth tenaculum. Cervix was infiltrated with 0.5% Marcaine with epinephrine. Cervix was circumscribed with a scalpel. Posterior cul-de-sac was entered sharply with Bishop scissors. Posterior leaf of the peritoneum was attached to the posterior vaginal cuff. The anterior fascia was bluntly and sharply with Metzenbaum scissors and open Ray Steve. Anterior cul-de-sac was entered sharply with Metzenbaum scissors. Curved Bovill was placed in the space to displace the bladder superiorly. Uterosacral ligaments were clamped, cut, and tied bilaterally in usual fashion. Cardinal ligaments and round ligaments were clamped, cut, and tied in the usual fashion. Good hemostasis was assured. Uterus was clipped on its fundus. The remaining attachments were clamped, cut, and tied and uterus was from these attachments and handed off the operative field. There was some bleeding from the right adnexa at the hilus of the ovary. The bleeding was not able to be controlled with certainty with [id number] stitches. So, the right adnexa was taken down in usual fashion with doubly clamping the infundibulopelvic ligaments, free tying on the back clamps x 2 and freed the adnexa away from the pedicle and then suture ligating the pedicles. Good hemostasis was then assured. Posterior cul-de-sac was irrigated copiously with warm normal saline. Good hemostasis was assured. Areas of bleeding were controlled with Bovie cautery. Peritoneum was reapproximated with 2-0 pursestring fashion. The vaginal cuff was reapproximated with a 2-0 vertical mattress stitch. Good hemostasis was assured. The vaginal vault was irrigated copiously with warm normal saline, packed with vaginal packing and MetroGel. Caceres was placed. Clear urine was noted. The procedure was terminated. Sponge, needle and instrument counts were correct x 2 per nursing staff. The patient went to postanesthesia recovery in stable condition. SOHAN GAFFNEY MD DR: ENDER/jordyn JOB#: [id number] / [id number]
[2016-10-13] MEDS: oxyCODONE/APAP 5/325 1 TAB TABLET PO PRN ×2 (17:48→22:04)
[2016-10-13] MEDS: SENNOSIDES/DOCUSATE 8.6/50MG TABLET. PO SCH (22:04)
[2016-10-13] MEDS: DOCUSATE SODIUM 100 MG CAPSULE. PO SCH (22:04)
[2016-10-14 00:40] VITALS: BP 95/53
[2016-10-14 04:41] LABS: CALCIUM 8.7 mg/dL (8.5-10.1); CREATININE 0.6 mg/dL (0.6-1.0); GFR 108.6; POTASSIUM 3.6 mmol/L (3.5-5.1)
[2016-10-14] MEDS: oxyCODONE/APAP 5/325 1 TAB TABLET PO PRN ×4 (05:40→22:01)
[2016-10-14 05:47] VITALS: BP 120/70
--- NOTE | 2016-10-14 10:38 | PDOC ---
SURGICAL PROGRESS NOTE Subjective No complaints Vital Signs CBC - BMP 10/13/16 11:25 10/14/16 03:05 Vital Signs Date Time Temp Pulse Resp B/P (MAP) Pulse Ox O2 Delivery O2 Flow Rate FiO2 10/14/16 05:47 98.3 96 18 120/70 (87) 97 Room Air 98.3 10/13/16 11:14 10 I&O Intake and Output 10/14/16 07:00 Intake Total 1848 ml Output Total 1600 ml Balance 248 ml Intake Oral 1240 ml IV Total 608 ml Output Urine Total 1600 ml PATIENT HAS A NGUYEN: No General: Alert, Oriented X3, Cooperative, No acute distress HEENT: Mucous membr. moist/pink Abdomen: Normal bowel sounds, Soft, No tenderness, No hepatosplenomegaly, No masses Extremities: No clubbing, No cyanosis, No edema, Normal pulses, No tenderness/ swelling Skin: No rashes, No breakdown, No significant lesion Neuro: Normal gait, Normal speech, Strength at 5/5 X4 ext, Normal tone, Sensation intact, Reflexes 2+ Psych/Mental Status: Mental status NL, Mood NL Labs Laboratory Tests Test 10/13/16 07:40 10/13/16 11:25 10/14/16 03:05 Urine Test Negative (NEG) Hemoglobin 8.7 g/dL (12.0-15.5) Hematocrit 26.1 % (36.0-47.0) 24.4 % (36.0-47.0) Sodium Level 139 mmol/L (136-145) Potassium Level 3.6 mmol/L (3.5-5.1) Chloride Level 104 mmol/L (98-107) Carbon Dioxide Level 27 mmol/L (21-32) Anion Gap 8 (6-14) Blood Urea Nitrogen 7 mg/dL (7-20) Creatinine 0.6 mg/dL (0.6-1.0) Estimated GFR (Cockcroft-Gault) 108.6 Glucose Level 139 mg/dL (70-99) Calcium Level 8.7 mg/dL (8.5-10.1) Laboratory Tests Test 10/13/16 11:25 10/14/16 03:05 Hemoglobin 8.7 g/dL (12.0-15.5) Hematocrit 26.1 % (36.0-47.0) 24.4 % (36.0-47.0) Sodium Level 139 mmol/L (136-145) Potassium Level 3.6 mmol/L (3.5-5.1) Chloride Level 104 mmol/L (98-107) Carbon Dioxide Level 27 mmol/L (21-32) Anion Gap 8 (6-14) Blood Urea Nitrogen 7 mg/dL (7-20) Creatinine 0.6 mg/dL (0.6-1.0) Estimated GFR (Cockcroft-Gault) 108.6 Glucose Level 139 mg/dL (70-99) Calcium Level 8.7 mg/dL (8.5-10.1) Assessment/Plan Check cbc in AM today iron studies consider IV iron befor DC Problems: MICHAEL MARIA MD Oct 14, 2016 10:38
[2016-10-14 11:16] LABS: ALBUMIN 3.1 g/dL (3.4-5.0); ALBUMIN/GLOBULIN RATIO 0.8 (1.0-1.7); CALCIUM 8.7 mg/dL (8.5-10.1); CREATININE 0.6 mg/dL (0.6-1.0); GFR 108.6; POTASSIUM 3.6 mmol/L (3.5-5.1); TOTAL BILIRUBIN 0.4 mg/dL (0.2-1.0); TOTAL PROTEIN 6.8 g/dL (6.4-8.2)
[2016-10-14] MEDS: DOCUSATE SODIUM 100 MG CAPSULE. PO SCH ×2 (11:41→22:02)
[2016-10-14 12:00] VITALS: BP 124/74
[2016-10-14 12:40] VITALS: BP 112/78
--- NOTE | 2016-10-14 16:58 | PATHOLOGY ---
PATHOLOGY REPORT * * * * * * * * FINAL DIAGNOSIS: Uterus and detached right fallopian tube and ovary, total vaginal hysterectomy with right salpingo-oophorectomy: - Adenomyosis, uterine corpus, with myometrial hypertrophy (uterine weight 148 grams). - Serosal mesothelial inclusion cysts, posterior uterine serosa. - Chronic cervicitis with focal squamous metaplasia. - Slightly disordered proliferative endometrium showing chronic inflammation. - Congestion of right fallopian tube. - Few capsular adhesions and small benign cyst showing regressive changes. COMMENT: There is no evidence of malignancy. (JPM:mml; d/t: 10/14/2016) REPORT ELECTRONICALLY SIGNED BY: Shawn Ordonez M.D. DATE/TIME: 10/14/2016 16:58 * * * * * * * * GROSS PATHOLOGY: The specimen is received in formalin and is designated "uterus, cervix, right fallopian tube and ovary." This consists of an enlarged uterus which weighs 148 grams and measures 9.7 cm in length, 6.3 cm in width, and 4.8 cm in thickness. The uterine serosa is pink-santa. There are several thin-walled yellow clear fluid-filled cysts of the posterior serosa, measuring up to 1.2 cm. At the level of the os, the exocervix measures up to 3.1 x 3.0 cm. The exocervical epithelium is pink-santa and focally distorted by instrument teeth chavira. The uterus is opened laterally. The squamocolumnar junction is well demarcated. The endocervical canal measures approximately 3.0 cm in length. The endometrial cavity has a triangular configuration. The endometrium is yellow-red and slightly irregular and nodular and measures up to 0.2 cm in thickness. The myometrial wall measures 2.0 cm in thickness, and is focally thickened up to 2.8 cm. There are santa bulging nodular areas of apparent adenomyosis. There are no discrete masses within the myometrium. The detached right adnexa consists of a fallopian tube and ovary weighing 12.0 gm. The fallopian tube measures approximately 5.3 cm in length and 0.7 cm in diameter. The serosa is pinkish purple and hyperemic. The pink-santa cerebriform ovary weighs 8 grams and measures up to 3.2 x 2.1 x 1.3 cm. There are a few delicate adhesions. The fallopian tube has a patent lumen. Sectioning of the ovary reveals a pink-santa cyst having smooth lining measuring 0.7 cm. Sections are submitted as follows: A1 uterine serosa A2 anterior cervix A3 posterior cervix A4, A5 anterior endomyometrium A6, A7 posterior endomyometrium A8 right fallopian tube A9 right ovary (JPM:mgr; d/t: 10/13/16) INITIAL CPT CODE(S): A; 23225 Professional services performed [place] [address] Technical services performed by [facility] at [address] [place] [address], [facility] [address], [place] [address]. SPECIMEN(S) RECEIVED: A.Uterus, cervix, right tube and ovary CLINICAL HISTORY: Abnormal uterine bleeding with severe anemia PATIENT: CADY RODRÍGUEZ /AGE: 10 1970 (Age: 46) PATIENT #: [id number] ALT CASE #: SPECIMEN COLLECTION DATE: 10/13/2016 SPECIMEN RECEIVED DATE: 10/13/2016 [facility] - [address] [place] [address] - PHONE: [phone] * * * END OF REPORT * * *
[2016-10-14 21:00] VITALS: BP 114/67
[2016-10-14] MEDS: SENNOSIDES/DOCUSATE 8.6/50MG TABLET. PO SCH (22:02)
[2016-10-15] MEDS: oxyCODONE/APAP 5/325 1 TAB TABLET PO PRN ×2 (05:58→11:51)
[2016-10-15 06:17] VITALS: BP 105/71
[2016-10-15 08:26] LABS: HEMATOCRIT 23.4 % (36.0-47.0); HEMOGLOBIN 7.4 g/dL (12.0-15.5); RED BLOOD COUNT 2.96 x10^6/uL (3.50-5.40); RED CELL DISTRIBUTION WIDTH 29.6 % (11.5-14.5); WHITE BLOOD COUNT 8.4 x10^3/uL (4.0-11.0)
[2016-10-15] MEDS: DOCUSATE SODIUM 100 MG CAPSULE. PO SCH (11:51)
[2016-10-15] MEDS: SENNOSIDES/DOCUSATE 8.6/50MG TABLET. PO SCH (11:51)
[2016-10-15 12:50] VITALS: BP 111/71
--- NOTE | 2016-10-15 13:21 | PDOC ---
SURGICAL PROGRESS NOTE Subjective Pt. feeling well. Ambulating, voiding and tolerating regular diet. Vital Signs Vital Signs Date Time Temp Pulse Resp B/P (MAP) Pulse Ox O2 Delivery O2 Flow Rate FiO2 10/15/16 07:00 18 Room Air 10/15/16 06:17 98.1 83 105/71 (82) 98.1 10/14/16 21:00 99 I&O Intake and Output 10/15/16 07:00 Intake Total 460 ml Balance 460 ml Intake Oral 460 ml # Voids 4 PATIENT HAS A NGUYEN: No General: Alert, Oriented X3, Cooperative HEENT: Atraumatic Lungs: Clear to auscultation Heart: Regular rate Abdomen: Normal bowel sounds, Soft, No tenderness Psych/Mental Status: Mental status NL Labs Laboratory Tests Test 10/14/16 03:05 10/15/16 06:30 Hematocrit 24.4 % (36.0-47.0) 23.4 % (36.0-47.0) Sodium Level 139 mmol/L (136-145) Potassium Level 3.6 mmol/L (3.5-5.1) Chloride Level 103 mmol/L (98-107) Carbon Dioxide Level 27 mmol/L (21-32) Anion Gap 9 (6-14) Blood Urea Nitrogen 7 mg/dL (7-20) Creatinine 0.6 mg/dL (0.6-1.0) Estimated GFR (Cockcroft-Gault) 108.6 BUN/Creatinine Ratio 12 (6-20) Glucose Level 139 mg/dL (70-99) Calcium Level 8.7 mg/dL (8.5-10.1) Transferrin 270 mg/dL (200-370) Ferritin 21 ng/mL (8-252) Total Bilirubin 0.4 mg/dL (0.2-1.0) Aspartate Amino Transf (AST/SGOT) 17 U/L (15-37) Alanine Aminotransferase (ALT/SGPT) 20 U/L (14-59) Alkaline Phosphatase 49 U/L (46-116) Total Protein 6.8 g/dL (6.4-8.2) Albumin 3.1 g/dL (3.4-5.0) Albumin/Globulin Ratio 0.8 (1.0-1.7) White Blood Count 8.4 x10^3/uL (4.0-11.0) Red Blood Count 2.96 x10^6/uL (3.50-5.40) Hemoglobin 7.4 g/dL (12.0-15.5) Mean Corpuscular Volume 79 fL (79-100) Mean Corpuscular Hemoglobin 25 pg (25-35) Mean Corpuscular Hemoglobin Concent 32 g/dL (31-37) Red Cell Distribution Width 29.6 % (11.5-14.5) Platelet Count 164 x10^3/uL (140-400) Laboratory Tests Test 10/15/16 06:30 White Blood Count 8.4 x10^3/uL (4.0-11.0) Red Blood Count 2.96 x10^6/uL (3.50-5.40) Hemoglobin 7.4 g/dL (12.0-15.5) Hematocrit 23.4 % (36.0-47.0) Mean Corpuscular Volume 79 fL (79-100) Mean Corpuscular Hemoglobin 25 pg (25-35) Mean Corpuscular Hemoglobin Concent 32 g/dL (31-37) Red Cell Distribution Width 29.6 % (11.5-14.5) Platelet Count 164 x10^3/uL (140-400) Assessment/Plan A: POD#1 s/p TVH & RSO P: D/c home. Problems: YONATHAN PERKINS Jr, MD Oct 15, 2016 13:21
--- NOTE | 2016-10-15 13:22 | DISCH ---
DISCHARGE INSTRUCTIONS Condition on Discharge Condition on Discharge: Stable Activity After Discharge Activity Instructions for Disc: Activity as tolerated Lifting Instructions after Dis: No heavy lifting Driving Instructions after Dis: No driving for 2 weeks Diet after Discharge Diet after Discharge: Regular Contacting the DRJarret after DC Call your doctor for: Concerns you may have Follow-Up Follow up with: Dr. Gaffney in 1 wk YONATHAN PERKINS Jr, MD Oct 15, 2016 13:22
[2016-10-15] MEDS ORDERED: OXYC-323 PO (13:23)
[2016-10-15] MEDS ORDERED: NAPR500T PO (13:23)
== END 2016-10-15 15:07 | disposition home or self-care (01) ==
LOC: SURG 07:25 → 3 NORTH 11:35
PROVIDERS: ADMIT Specialist; ATTEND Specialist
DX: N93.9 Abnormal uterine and vaginal bleeding, unspecified (principal)
CPT/HCPCS: 36415; 58262; 71010; 80048; 80053; 81025; 82728; 84466; 85014; 85018; 85027; 86850; 86900; 86901; 88307; 96365; 96375; 96376; C1769; G0378; G0379; J0690; J0780; J1100; J1170; J2250; J2405; J2704; J2710; J3010; J3490; J7120

== ENCOUNTER 2017-06-14 14:46 | Emergency (ER) | payer BC ==
[2017-06-14] MEDS: CYCLOBENZAPRINE 10 MG TABLET. PO ×2 (15:44)
[2017-06-14] MEDS: HYDROcodone/APAP 5/325MG 1 TAB TABLET PO ×2 (15:45)
[2017-06-14] MEDS: NAPROXEN 500 MG TABLET PO ×2 (15:45)
== END 2017-06-14 15:58 | disposition home or self-care (01) ==
LOC: ER 14:46
DX: M54.41 Lumbago with sciatica, right side (principal); J45.909 Unspecified asthma, uncomplicated; E11.9 Type 2 diabetes mellitus without complications
CPT/HCPCS: 99284